=== PATIENT | male | born 1980 | race Hispanic/Latino ===

== ENCOUNTER 2017-06-26 23:33 | Emergency (ER) | payer SELFPAY ==
[2017-06-26] MEDS ORDERED: Adacel (T-DAP) 0.5 ML VIAL ONE (23:47)
[2017-06-27] MEDS ORDERED: Ketorolac Tromethamine 30 MG/ML VIAL ONE (00:13)
--- NOTE | 2017-06-27 07:53 | RAD ---
LEFT HAND 3 VIEWS: HISTORY: Injury. COMPARISON: None. FINDINGS: There is mild edema of the hand. No acute finding. No malalignment. No radiopaque foreign object i s appreciated. IMPRESSION: No acute fracture or malalignment. POS: [facility]
== END 2017-06-27 00:33 | disposition home or self-care (01) ==
LOC: ERS 23:33
DX: S61.432A Puncture wound without foreign body of left hand, initial encounter (principal); F17.210 Nicotine dependence, cigarettes, uncomplicated; W31.9XXA Contact with unspecified machinery, initial encounter
CPT/HCPCS: 90471; 90715; 96372; J1885